=== PATIENT | female | born 2000 | race African-American/Black ===

== ENCOUNTER 2019-07-20 16:34 | Emergency (ER) | payer SELFPAY ==
[~2019-07-20] VITALS: Ht 157.5 cm; Wt 43.7 kg
[2019-07-20] MEDS ORDERED: ACETAMINOPHEN 325MG TABLET PO ONE (17:15)
[2019-07-20 19:25] VITALS: BP 118/64
== END 2019-07-20 19:27 | disposition left against medical advice (07) ==
LOC: ER 16:34
DX: R06.02 Shortness of breath (principal); Z53.21 Procedure and treatment not carried out due to patient leaving prior to being seen by health care provider